=== PATIENT | male | born 1960 | race Caucasian/White ===

== ENCOUNTER 2018-07-24 06:03 | Day surgery (SDC) | payer BC, OTHER ==
[~2018-07-24] VITALS: Ht 175.3 cm; Wt 83.2 kg
[~2018-07-24 06:03] MED LIST: ASPI81TA85 PO; ATOR1TAB19 PO; CENTCHW3 PO; CO Q10CA PO; FAMO40TA3 PO; LR 1,000 ML IV ONE; OMEP40CA2 PO; TURM500C PO
[2018-07-24] MEDS ORDERED: dexameTHASONE 4 MG/ML 1ML VIAL (J1100) As Ordered ONE ×2 (06:59→07:09)
[2018-07-24] MEDS ORDERED: LIDOCAINE 2% INJ 100 MG/5 ML SDV (FOR ANES.) As Ordered ONE (06:59)
[2018-07-24] MEDS ORDERED: ONDANSETRON 4MG/2ML VIAL (J2405) As Ordered ONE (06:59)
[2018-07-24] MEDS ORDERED: PROPOFOL 500 MG/50 ML VIAL As Ordered ONE (07:00)
[2018-07-24] MEDS ORDERED: MIDAZOLAM INJ 2 MG/2 ML VIAL (J2250) As Ordered ONE (07:00)
[2018-07-24] MEDS ORDERED: fentaNYL 100 MCG/2 ML INJECTION (J3010) As Ordered ONE (07:00)
[2018-07-24] MEDS ORDERED: BUPIVACAINE HCL 0.5% 10 ML VIAL As Ordered ONE (07:08)
[2018-07-24] MEDS ORDERED: BACITRACIN PWD 50,000 UNITS VIAL As Ordered ONE (07:09)
[2018-07-24] MEDS ORDERED: NEOSPORIN GU IRRIG 20 ML VIAL As Ordered ONE (07:09)
[2018-07-24] MEDS ORDERED: LIDOCAINE 2% MDV 20 ML VIAL As Ordered ONE (07:09)
[2018-07-24] MEDS ORDERED: ONDANSETRON 4MG/2ML VIAL (J2405) IV PRN (09:00)
[2018-07-24] MEDS ORDERED: fentaNYL 100 MCG/2 ML INJECTION (J3010) IV PRN (09:00)
[2018-07-24] MEDS ORDERED: METOCLOPRAMIDE INJ 10MG/2ML VIAL (J2765) IV PRN (09:00)
[2018-07-24] MEDS ORDERED: LR 1,000 ML IV SCH (09:00)
[2018-07-24] MEDS ORDERED: PERCOCET 5MG/325MG TAB PO PRN (09:00)
[2018-07-24 09:30] VITALS: BP 127/80
--- NOTE | 2018-07-24 12:27 | REP ---
LEFT FOOT, THREE VIEWS: HISTORY: Postop. The patient is status post osteotomy of the 1st metatarsal. A metal pin is present. There is no acute fracture or dislocation. There is narrowing of the 1st metatarsophalangeal joint space. The remaining joint spaces are normal in appearance. IMPRESSION: The patient is status post osteotomy of the 1st metatarsal. There is anatomic alignment. Electronically Signed by Albino Roberts MD 07/24/2018 12:47 P
--- NOTE | 2018-07-25 08:41 | RO ---
DATE OF PROCEDURE: 07/24/2018 PREPROCEDURE DIAGNOSIS: Hallux valgus deformity, left foot. POSTPROCEDURE DIAGNOSIS: Hallux valgus deformity, left foot. PROCEDURE: Jose bunionectomy with internal screw fixation 3.0 x 26 mm times one, left foot. SURGEON: Michael Bauer DPM [employer] SPECIALIST: None. ANESTHESIA: Local monitored anesthesia care (MAC). IRRIGATION: Dilute bacitracin, neomycin and polymyxin B solution. HEMOSTASIS: Ankle pneumatic tourniquet at 250 mmHg for 34 minutes. HARDWARE UTILIZED: Arthrex headless cannulated compression screw, 3.0 x 26 mm. DESCRIPTION OF PROCEDURE: On 07/24/2018, this 58-year-old male was taken from her hospital room to the operating room and placed on the operating table in supine position. Following the induction of IV sedation and local and regional anesthesia, the left lower extremity was prepped and draped in the usual aseptic manner. Attention was directed to the patient's left foot. There was noted to be a moderately severe hallux valgus deformity. At this time, a 5 cm incision was placed over the first metatarsophalangeal joint of the left foot. The incision was deepened through subcutaneous tissues and all coursing venous tributaries were identified, underscored, clamped, cut, ligated and electrocoagulated as necessary. A linear capsulotomy was then performed in the same plane as the original skin incision. The capsule and periosteal structures were then dissected free in one continuous layer dorsally, medially and laterally, thus creating a capsule and periosteal type envelope. This put into view the hypertrophied medial eminence of the first metatarsal, which was osteotomized from dorsal and plantar, through and through, exiting the medial sesamoid groove. There was noted to be an area of calcification in the medial capsule. This was then dissected out from the inferior and internal surface of the joint capsule. The wound was flushed with copious amounts of dilute bacitracin, neomycin, and polymyxin B solution. Attention was directed to the first metatarsal space and dissected was carried down below the fibular sesamoid where the conjoined tendon was dissected free. A V-shaped osteotomy was then performed with a power saggital saw with a long plantar and short dorsal wing. Upon creation of this osteotomy, capital fragment was transposed 35% of the width of the shaft of the first metatarsal and fixated with a 3.0 x 26 mm headless compression screw. The osteotomy was noted to be stable in all three cardinal planes. The redundant cortical spike was then osteotomized from dorsal to plantar, through and through and extirpated from the wound. Attention was directed towards closure where the capsular structures were coapted and maintained utilizing #2-0 Monocryl in a simple interrupted type fashion. The subcutaneous tissues were coapted and maintained utilizing #4-0 Monocryl in a simple interrupted type fashion. The skin incision was coapted and maintained utilizing #5-0 Monocryl in a continuous subcuticular type fashion. This was reinforced with Steri-Strips. Attention was then directed towards bandaging where a sterile compressive bandage was applied consisting of Adaptic, 4x4s, 4x4 splints, Jonna and Kerlix and Coban. The ankle pneumatic tourniquet was rapidly deflated after 34 minutes at 200 mmHg and instantaneous capillary filling time was noted in digits 1-5 of the patient's left foot. The patient, having apparently tolerated the surgical procedure well, was taken from the operating room to the recovery room for further monitoring by the anesthesia department. Postoperative instructions given upon discharge.
== END 2018-07-24 09:55 | disposition home or self-care (01) ==
LOC: M SDC 06:03
PROVIDERS: ATTEND Podiatrist
DX: M20.12 Hallux valgus (acquired), left foot (principal); M79.672 Pain in left foot; K21.9 Gastro-esophageal reflux disease without esophagitis; E78.5 Hyperlipidemia, unspecified; Z79.82 Long term (current) use of aspirin; Z79.899 Other long term (current) drug therapy
CPT/HCPCS: 28296; 73630; 88300; 97116; C1713; J0690; J1100; J2250; J2405; J3010

== ENCOUNTER → 2021-10-21 | Outpatient (CLI) | payer BC, OTHER ==
[~2021-10-21] MED LIST changes: -ASPI81TA85 PO; +ASPI81TA86 PO; -LR 1,000 ML IV ONE; -OMEP40CA2 PO; +OMEP40CA4 PO; +TRAM50TA2 PO
== END ==
LOC: M LABSMTC 09:07
PROVIDERS: ATTEND Anesthesiology
DX: Z01.812 Encounter for preprocedural laboratory examination (principal); Z20.822 Contact with and (suspected) exposure to COVID-19

== ENCOUNTER 2021-10-26 08:50 | Day surgery (SDC) | payer BC, OTHER ==
[~2021-10-26] VITALS: Ht 175.3 cm; Wt 82.9 kg
[2021-10-26] MEDS ORDERED: LR 1,000 ML IV SCH (08:55)
[2021-10-26] MEDS ORDERED: D 1010004 PO (09:22)
[2021-10-26] MEDS ORDERED: ceFAZolin SOD 2 GM in IV 1 EA IV ONE (09:25)
[2021-10-26] MEDS ORDERED: dexameTHASONE 4 MG/ML 1ML VIAL (J1100 PER 1MG) As Ordered ONE (10:15)
[2021-10-26] MEDS ORDERED: LIDOCAINE 2% MDV 20ML VIAL As Ordered ONE (10:15)
[2021-10-26] MEDS ORDERED: GENTAMICIN SULF 80MG/2ML VIAL As Ordered ONE (10:15)
[2021-10-26] MEDS ORDERED: BUPIVACAINE HCL 0.5% 30ML VIAL As Ordered ONE (10:16)
[2021-10-26] MEDS ORDERED: MIDAZOLAM INJ 2MG/2ML VIAL (J2250 PER 1MG) As Ordered ONE (11:00)
[2021-10-26] MEDS ORDERED: propofoL 200 MG/20 ML VIAL As Ordered ONE (11:00)
[2021-10-26] MEDS ORDERED: fentaNYL 100 MCG/2 ML INJECTION As Ordered ONE (11:00)
[2021-10-26] MEDS ORDERED: ACETAMINOPHEN 1000MG 100ML IV BTL (OFIRMEV) (J0131 PER 10MG) As Ordered ONE (11:03)
[2021-10-26] MEDS ORDERED: ONDANSETRON 4MG/2ML VIAL As Ordered ONE (11:05)
[2021-10-26] MEDS ORDERED: LIDOCAINE 2% INJ 100 MG/5 ML SYRINGE As Ordered ONE (11:05)
[2021-10-26 11:40] VITALS: BP 116/74
== END 2021-10-26 11:45 | disposition home or self-care (01) ==
LOC: M SDC 08:50
PROVIDERS: ATTEND Podiatrist
DX: T84.293A Other mechanical complication of internal fixation device of bones of foot and toes, initial encounter (principal); M79.672 Pain in left foot; M20.12 Hallux valgus (acquired), left foot; K21.9 Gastro-esophageal reflux disease without esophagitis; Z79.899 Other long term (current) drug therapy; E78.5 Hyperlipidemia, unspecified
CPT/HCPCS: 20680; J0131; J0690; J1580; J2250; J2405; J3010

== ENCOUNTER → 2023-07-23 | Outpatient (REF) | payer OTHER, BC ==
[~2023-07-23] MED LIST changes: +D 1010004 PO
== END ==
LOC: M SFHCDERM 14:47
PROVIDERS: ATTEND Nurse Practitioner Family
DX: D49.2 Neoplasm of unspecified behavior of bone, soft tissue, and skin (principal)